=== PATIENT | female | born 1985 | race Caucasian/White ===

== ENCOUNTER 2021-12-28 11:43 | Emergency (ER) | payer MEDICAID ==
[~2021-12-28] VITALS: Ht 170.2 cm; Wt 83.0 kg
[2021-12-28 11:47] VITALS: BP 122/94
[2021-12-28 12:22] LABS: HEMATOCRIT. 31.6 % (36.0-48.0); HEMOGLOBIN. 10.5 g/dL (12.0-16.0); MEAN CORPUSCULAR HEMOGLOBIN 28.7 pg (28.0-32.0); MEAN CORPUSCULAR VOLUME 86.5 fL (81.0-99.0); MEAN PLATELET VOLUME 7.3 fl (7.4-10.4); PLATELET 140 x1000/uL (130-400); RED BLOOD CELL COUNT 3.65 mill/uL (4.2-5.4); RED CELL DISTRIBUTION WIDTH 14.4 % (11.6-14.6)
[2021-12-28 12:30] LABS: CHLORIDE 99 mEq/L (98-107)
[2021-12-28 12:45] LABS: PLATELET ESTIMATE NORMAL
[2021-12-28] MEDS ORDERED: ONDANSETRON HCL 4MG TABLET PO ONE (13:00)
[2021-12-28] MEDS ORDERED: TOPUD PO (13:16)
[2021-12-28] MEDS ORDERED: ALBU6.7H9 INH (13:16)
== END 2021-12-28 14:40 | disposition home or self-care (01) ==
LOC: ER 12:07
DX: R07.89 Other chest pain (principal); J45.909 Unspecified asthma, uncomplicated; F31.9 Bipolar disorder, unspecified; F20.9 Schizophrenia, unspecified
CPT/HCPCS: 36415; 71045; 80053; 83880; 84484; 85025; 93005; 99285; Q0162

== ENCOUNTER 2022-01-05 14:55 | Emergency (ER) | payer MEDICAID ==
[~2022-01-05] VITALS: Ht 165.1 cm; Wt 86.0 kg
[~2022-01-05 14:55] MED LIST: ALBU6.7H9 INH; TOPUD PO
[2022-01-05 14:59] VITALS: BP 120/77
[2022-01-05] MEDS ORDERED: IPRATROPIUM BROMIDE (0.02%) 0.5MG/2.5ML NEB HHN STA (15:43)
[2022-01-05] MEDS: ALBUTEROL (0.083%) 2.5MG/3ML NEB HHN SCH (16:00)
[2022-01-05] MEDS ORDERED: GUAI600T26 MT (16:21)
[2022-01-05] MEDS ORDERED: ALBU6.7H9 INH (16:21)
== END 2022-01-05 17:19 | disposition home or self-care (01) ==
LOC: ER 14:55
DX: J06.9 Acute upper respiratory infection, unspecified (principal); J20.9 Acute bronchitis, unspecified; F41.9 Anxiety disorder, unspecified; F31.9 Bipolar disorder, unspecified; F20.9 Schizophrenia, unspecified; R56.9 Unspecified convulsions; Z20.822 Contact with and (suspected) exposure to COVID-19
CPT/HCPCS: 71045; 87426; 94644; 99285; C9803; Z7610